=== PATIENT | male | born 1950 | race Caucasian/White ===

== ENCOUNTER 2017-09-03 06:45 | Emergency (ER) | payer MEDICARE, OTHER ==
[~2017-09-03] VITALS: Ht 185.4 cm; Wt 103.9 kg
[~2017-09-03 06:45] MED LIST: ACET325 PO; ALLO300 PO; ASPI81EC PO; Androgel5 GM; BACL10 PO; BACL20 PO; CEPH500 PO; Cymbalta60 MG PO; DIVA500ER PO; DOCSEN PO; Diflucan200 MG PO; ENOX100I SUBQ; ENOX80I; FLUC200 PO; LEVE500 PO; LISI5 PO; LIVALO PO; LORA.5 PO; Lamictal200 MG PO; MAGOXI400 PO; METO50 PO; METO50ER PO; OXYC5 PO; PITAVASTATIN PO; POLY17UD PO; POTCHL20ER PO; POTPHO PO; PROB500 PO; RANI150 PO; ROPI.25 PO; SIMV80 PO; SOLI5; TOLT4 PO; VIT D PO; WARF4 PO; WARF5; WARF5 PO; WARF7.5 PO
[2017-09-03] MEDS ORDERED: Lamictal150 MG PO (07:01)
[2017-09-03] MEDS ORDERED: ROPI.25 PO (07:02)
[2017-09-03] MEDS ORDERED: WARF1 PO (07:02)
[2017-09-03] MEDS ORDERED: VIT D3 PO (07:03)
[2017-09-03] MEDS ORDERED: MELA3 PO (07:04)
[2017-09-03] MEDS ORDERED: B-122500 MC1 (07:05)
[2017-09-03] MEDS ORDERED: MYRBETRIQ50 MG PO (07:06)
[2017-09-03 07:20] LABS: BASOPHILS ABSOLUTE AUTO 0.04 K/mm3 (0.00-0.23); BASOPHILS PERCENT AUTO 0 % (0-2); EOSINOPHILS ABSOLUTE AUTO 0.06 K/mm3 (0.00-0.68); EOSINOPHILS PERCENT AUTO 1 % (0-6); Hematocrit 46.1 % (37.0-53.0); Hemoglobin 14.9 g/dL (13.5-17.5); IMMATURE GRAN ABSOLUTE AUTO 0.05 K/mm3 (0.00-0.10); IMMATURE GRAN PERCENT AUTO 1 % (0-1); LYMPHOCYTES ABSOLUTE AUTO 1.14 K/mm3 (0.84-5.20); LYMPHOCYTES PERCENT AUTO 12 % (21-46); MONOCYTES ABSOLUTE AUTO 1.02 K/mm3 (0.16-1.47); MONOCYTES PERCENT AUTO 10 % (4-13); Mean Corpuscular HGB Conc 32.3 g/dL (31.5-36.5); Mean Corpuscular Volume 96 fL (80-100); Mean Platelet Volume 10.7 fL (9.1-12.4); NEUTROPHILS ABSOLUTE AUTO 7.51 K/mm3 (1.96-9.15); NEUTROPHILS PERCENT AUTO 77 % (41-73); Platelet Count 238 K/mm3 (150-400); RDW Coefficient Variation 14.6 % (11.7-14.2); RDW Standard Deviation 51.7 fL (35.1-46.3); Red Blood Cell Count 4.81 M/mm3 (4.30-5.90); White Blood Cell Count 9.82 K/mm3 (4.00-11.30)
[2017-09-03 07:33] LABS: International Normalized Ratio 3.34; Prothrombin Time Results 32.1 Sec (9.7-11.5)
[2017-09-03 07:49] LABS: Anion Gap 8 mmol/L (6-16); Blood Urea Nitrogen 26 mg/dL (8-24); Bun/Creatinine Ratio 28.1 (12.0-20.0); CO2, Blood 24 mmol/L (21-32); Calcium, Blood 8.8 mg/dL (8.5-10.1); Chloride, Blood 108 mmol/L (98-108); Creatinine, Blood 0.92 mg/dL (0.60-1.20); Glomerular Filtration Rate >60 (60-); Glucose, Blood 120 mg/dL (70-99); Potassium, Blood 4.6 mmol/L (3.5-5.5); Sodium, Blood 140 mmol/L (136-145); Uric Acid, Blood 7.1 mg/dL (3.5-7.2)
[2017-09-03] MEDS ORDERED: CEPH500 PO (08:37)
[2017-09-04] MEDS ORDERED: LORA1SY (10:12)
== END 2017-09-03 09:04 | disposition home or self-care (01) ==
LOC: ER 06:45
PROVIDERS: Emergency Medicine
DX: L03.115 Cellulitis of right lower limb (principal); Z88.8 Allergy status to other drugs, medicaments and biological substances; Z79.899 Other long term (current) drug therapy; Z79.01 Long term (current) use of anticoagulants; Z79.2 Long term (current) use of antibiotics; Z87.891 Personal history of nicotine dependence
CPT/HCPCS: 71046; 73630; 80048; 84550; 85025; 85610; 90471; 90714; 96374; 99283; J0690

== ENCOUNTER 2017-09-03 21:21 | Inpatient (IN) | payer MEDICARE, OTHER ==
[~2017-09-03] VITALS: Ht 182.9 cm; Wt 111.9 kg
[~2017-09-03 21:21] MED LIST changes: +B-122500 MC1; +Lamictal150 MG PO; +MELA3 PO; +MYRBETRIQ50 MG PO; +VIT D3 PO; +WARF1 PO
[2017-09-03 23:51] LABS: BASOPHILS ABSOLUTE AUTO 0.02 K/mm3 (0.00-0.23); BASOPHILS PERCENT AUTO 0 % (0-2); EOSINOPHILS ABSOLUTE AUTO 0.04 K/mm3 (0.00-0.68); EOSINOPHILS PERCENT AUTO 0 % (0-6); Hematocrit 44.1 % (37.0-53.0); Hemoglobin 14.4 g/dL (13.5-17.5); IMMATURE GRAN ABSOLUTE AUTO 0.04 K/mm3 (0.00-0.10); IMMATURE GRAN PERCENT AUTO 0 % (0-1); LYMPHOCYTES ABSOLUTE AUTO 1.25 K/mm3 (0.84-5.20); LYMPHOCYTES PERCENT AUTO 13 % (21-46); MONOCYTES ABSOLUTE AUTO 0.89 K/mm3 (0.16-1.47); MONOCYTES PERCENT AUTO 9 % (4-13); Mean Corpuscular HGB 31.4 pg (26.0-34.0); Mean Corpuscular HGB Conc 32.7 g/dL (31.5-36.5); Mean Corpuscular Volume 96 fL (80-100); Mean Platelet Volume 11.4 fL (9.1-12.4); NEUTROPHILS PERCENT AUTO 77 % (41-73); Platelet Count 240 K/mm3 (150-400); RDW Coefficient Variation 14.9 % (11.7-14.2); RDW Standard Deviation 52.1 fL (35.1-46.3); Red Blood Cell Count 4.59 M/mm3 (4.30-5.90); White Blood Cell Count 9.64 K/mm3 (4.00-11.30)
[2017-09-04 01:15] LABS: International Normalized Ratio 3.82; Prothrombin Time Results 36.5 Sec (9.7-11.5)
[2017-09-04 01:17] LABS: Alanine Aminotransfer (ALT/SGP 29 U/L (12-78); Albumin, Blood 3.3 g/dL (3.4-5.0); Albumin/Globulin Ratio 0.8 (0.8-1.8); Alk Phos 72 U/L (50-136); Anion Gap 8 mmol/L (6-16); Aspartate Aminotrans (AST/SGOT 22 U/L (12-37); Bilirubin, Total 0.4 mg/dL (0.1-1.0); Blood Urea Nitrogen 24 mg/dL (8-24); Bun/Creatinine Ratio 24.5 (12.0-20.0); CO2, Blood 27 mmol/L (21-32); Calcium, Blood 8.7 mg/dL (8.5-10.1); Chloride, Blood 106 mmol/L (98-108); Creatinine, Blood 0.98 mg/dL (0.60-1.20); Glomerular Filtration Rate >60 (60-); Glucose, Blood 109 mg/dL (70-99); Potassium, Blood 4.4 mmol/L (3.5-5.5); Sodium, Blood 141 mmol/L (136-145); Total Protein, Blood 7.3 g/dL (6.4-8.2)
[2017-09-04] MEDS ORDERED: LORA1SY PO (10:12)
[2017-09-05 05:52] LABS: BASOPHILS ABSOLUTE AUTO 0.02 K/mm3 (0.00-0.23); BASOPHILS PERCENT AUTO 0 % (0-2); EOSINOPHILS ABSOLUTE AUTO 0.01 K/mm3 (0.00-0.68); EOSINOPHILS PERCENT AUTO 0 % (0-6); Hematocrit 44.2 % (37.0-53.0); Hemoglobin 14.5 g/dL (13.5-17.5); IMMATURE GRAN ABSOLUTE AUTO 0.04 K/mm3 (0.00-0.10); IMMATURE GRAN PERCENT AUTO 1 % (0-1); LYMPHOCYTES ABSOLUTE AUTO 0.73 K/mm3 (0.84-5.20); LYMPHOCYTES PERCENT AUTO 9 % (21-46); MONOCYTES ABSOLUTE AUTO 1.12 K/mm3 (0.16-1.47); MONOCYTES PERCENT AUTO 14 % (4-13); Mean Corpuscular HGB 31.3 pg (26.0-34.0); Mean Corpuscular HGB Conc 32.8 g/dL (31.5-36.5); Mean Corpuscular Volume 95 fL (80-100); Mean Platelet Volume 10.4 fL (9.1-12.4); NEUTROPHILS ABSOLUTE AUTO 6.35 K/mm3 (1.96-9.15); NEUTROPHILS PERCENT AUTO 77 % (41-73); Platelet Count 204 K/mm3 (150-400); RDW Coefficient Variation 14.4 % (11.7-14.2); RDW Standard Deviation 50.6 fL (35.1-46.3); Red Blood Cell Count 4.64 M/mm3 (4.30-5.90); White Blood Cell Count 8.27 K/mm3 (4.00-11.30)
[2017-09-05 06:09] LABS: Anion Gap 8 mmol/L (6-16); Blood Urea Nitrogen 17 mg/dL (8-24); Bun/Creatinine Ratio 15.7 (12.0-20.0); CO2, Blood 29 mmol/L (21-32); Chloride, Blood 103 mmol/L (98-108); Creatinine, Blood 1.08 mg/dL (0.60-1.20); Glomerular Filtration Rate >60 (60-); Glucose, Blood 113 mg/dL (70-99); Potassium, Blood 4.8 mmol/L (3.5-5.5); Sodium, Blood 140 mmol/L (136-145); Uric Acid, Blood 6.1 mg/dL (3.5-7.2)
[2017-09-05 06:49] LABS: International Normalized Ratio 3.03; Prothrombin Time Results 29.3 Sec (9.7-11.5)
[2017-09-06 05:03] LABS: BASOPHILS ABSOLUTE AUTO 0.01 K/mm3 (0.00-0.23); BASOPHILS PERCENT AUTO 0 % (0-2); EOSINOPHILS ABSOLUTE AUTO 0.09 K/mm3 (0.00-0.68); EOSINOPHILS PERCENT AUTO 1 % (0-6); Hematocrit 39.6 % (37.0-53.0); Hemoglobin 12.8 g/dL (13.5-17.5); IMMATURE GRAN ABSOLUTE AUTO 0.04 K/mm3 (0.00-0.10); IMMATURE GRAN PERCENT AUTO 1 % (0-1); LYMPHOCYTES ABSOLUTE AUTO 0.76 K/mm3 (0.84-5.20); LYMPHOCYTES PERCENT AUTO 10 % (21-46); MONOCYTES PERCENT AUTO 12 % (4-13); Mean Corpuscular HGB 31.3 pg (26.0-34.0); Mean Corpuscular HGB Conc 32.3 g/dL (31.5-36.5); Mean Corpuscular Volume 97 fL (80-100); Mean Platelet Volume 9.9 fL (9.1-12.4); NEUTROPHILS ABSOLUTE AUTO 5.51 K/mm3 (1.96-9.15); NEUTROPHILS PERCENT AUTO 76 % (41-73); Platelet Count 191 K/mm3 (150-400); RDW Coefficient Variation 14.2 % (11.7-14.2); Red Blood Cell Count 4.09 M/mm3 (4.30-5.90); White Blood Cell Count 7.31 K/mm3 (4.00-11.30)
[2017-09-06 05:17] LABS: International Normalized Ratio 2.81; Prothrombin Time Results 27.3 Sec (9.7-11.5)
[2017-09-06 05:21] LABS: Bun/Creatinine Ratio 18.1 (12.0-20.0); Calcium, Blood 9.2 mg/dL (8.5-10.1); Creatinine, Blood 1.44 mg/dL (0.60-1.20); Potassium, Blood 4.2 mmol/L (3.5-5.5)
[2017-09-07 06:05] LABS: BASOPHILS ABSOLUTE AUTO 0.01 K/mm3 (0.00-0.23); BASOPHILS PERCENT AUTO 0 % (0-2); EOSINOPHILS PERCENT AUTO 2 % (0-6); Hematocrit 37.8 % (37.0-53.0); Hemoglobin 12.2 g/dL (13.5-17.5); IMMATURE GRAN ABSOLUTE AUTO 0.02 K/mm3 (0.00-0.10); IMMATURE GRAN PERCENT AUTO 0 % (0-1); LYMPHOCYTES ABSOLUTE AUTO 0.78 K/mm3 (0.84-5.20); LYMPHOCYTES PERCENT AUTO 13 % (21-46); MONOCYTES ABSOLUTE AUTO 0.67 K/mm3 (0.16-1.47); MONOCYTES PERCENT AUTO 11 % (4-13); Mean Corpuscular HGB Conc 32.3 g/dL (31.5-36.5); Mean Corpuscular Volume 96 fL (80-100); Mean Platelet Volume 10.3 fL (9.1-12.4); NEUTROPHILS ABSOLUTE AUTO 4.28 K/mm3 (1.96-9.15); NEUTROPHILS PERCENT AUTO 73 % (41-73); Platelet Count 223 K/mm3 (150-400); RDW Coefficient Variation 14.2 % (11.7-14.2); RDW Standard Deviation 50.5 fL (35.1-46.3); Red Blood Cell Count 3.93 M/mm3 (4.30-5.90); White Blood Cell Count 5.86 K/mm3 (4.00-11.30)
[2017-09-07 06:19] LABS: International Normalized Ratio 2.59; Prothrombin Time Results 25.3 Sec (9.7-11.5)
[2017-09-07 06:25] LABS: Anion Gap 6 mmol/L (6-16); Blood Urea Nitrogen 24 mg/dL (8-24); CO2, Blood 29 mmol/L (21-32); Calcium, Blood 9.5 mg/dL (8.5-10.1); Chloride, Blood 103 mmol/L (98-108); Creatinine, Blood 1.09 mg/dL (0.60-1.20); Glomerular Filtration Rate >60 (60-); Glucose, Blood 104 mg/dL (70-99); Potassium, Blood 4.6 mmol/L (3.5-5.5); Sodium, Blood 138 mmol/L (136-145)
[2017-09-08 06:06] LABS: International Normalized Ratio 2.24
[2017-09-09 04:54] LABS: BASOPHILS ABSOLUTE AUTO 0.01 K/mm3 (0.00-0.23); BASOPHILS PERCENT AUTO 0 % (0-2); EOSINOPHILS ABSOLUTE AUTO 0.01 K/mm3 (0.00-0.68); EOSINOPHILS PERCENT AUTO 0 % (0-6); Hematocrit 41.6 % (37.0-53.0); Hemoglobin 13.2 g/dL (13.5-17.5); IMMATURE GRAN ABSOLUTE AUTO 0.06 K/mm3 (0.00-0.10); IMMATURE GRAN PERCENT AUTO 1 % (0-1); LYMPHOCYTES ABSOLUTE AUTO 0.72 K/mm3 (0.84-5.20); LYMPHOCYTES PERCENT AUTO 12 % (21-46); MONOCYTES ABSOLUTE AUTO 0.41 K/mm3 (0.16-1.47); MONOCYTES PERCENT AUTO 7 % (4-13); Mean Corpuscular HGB 30.4 pg (26.0-34.0); Mean Corpuscular HGB Conc 31.7 g/dL (31.5-36.5); Mean Corpuscular Volume 96 fL (80-100); Mean Platelet Volume 10.1 fL (9.1-12.4); NEUTROPHILS ABSOLUTE AUTO 4.74 K/mm3 (1.96-9.15); NEUTROPHILS PERCENT AUTO 80 % (41-73); Platelet Count 255 K/mm3 (150-400); RDW Coefficient Variation 14.5 % (11.7-14.2); RDW Standard Deviation 51.2 fL (35.1-46.3); Red Blood Cell Count 4.34 M/mm3 (4.30-5.90); White Blood Cell Count 5.95 K/mm3 (4.00-11.30)
[2017-09-09 05:09] LABS: International Normalized Ratio 2.17; Prothrombin Time Results 21.4 Sec (9.7-11.5)
[2017-09-09 05:20] LABS: Anion Gap 8 mmol/L (6-16); Blood Urea Nitrogen 24 mg/dL (8-24); Bun/Creatinine Ratio 24.9 (12.0-20.0); CO2, Blood 26 mmol/L (21-32); Calcium, Blood 9.7 mg/dL (8.5-10.1); Chloride, Blood 103 mmol/L (98-108); Creatinine, Blood 0.97 mg/dL (0.60-1.20); Glomerular Filtration Rate >60 (60-); Glucose, Blood 138 mg/dL (70-99); Potassium, Blood 4.7 mmol/L (3.5-5.5); Sodium, Blood 137 mmol/L (136-145)
[2017-09-10 05:38] LABS: International Normalized Ratio 2.36; Prothrombin Time Results 23.2 Sec (9.7-11.5)
[2017-09-10] MEDS ORDERED: CLIN300 PO (12:12)
[2017-09-10] MEDS ORDERED: GUAI600T33 PO (12:13)
[2017-09-10] MEDS ORDERED: FEBU40TA PO (12:13)
[2017-09-10] MEDS ORDERED: HYDR1TAB94 PO (12:14)
[2017-09-10] MEDS ORDERED: ONDA4ODT MM (12:15)
[2017-09-10] MEDS ORDERED: DELTASONE20 MG PO (12:17)
[2017-09-10] MEDS ORDERED: DOXY100 PO (12:17)
[2017-09-10] MEDS ORDERED: ACIDOPHILUS1 EAC2 PO (12:22)
== END 2017-09-10 13:03 | disposition home health service (06) | DRG 603 ==
LOC: ER 21:21 → MEDS 09-04 04:24 → ENPENDDIS 09-10 10:44 → MEDS 09-10 13:03
PROVIDERS: Emergency Medicine; Family Medicine
DX: L03.115 Cellulitis of right lower limb (principal); I69.354 Hemiplegia and hemiparesis following cerebral infarction affecting left non-dominant side; G40.909 Epilepsy, unspecified, not intractable, without status epilepticus; Z95.2 Presence of prosthetic heart valve; Z87.891 Personal history of nicotine dependence; Z66 Do not resuscitate; Z79.01 Long term (current) use of anticoagulants; M10.9 Gout, unspecified; I10 Essential (primary) hypertension
CPT/HCPCS: 36415; 71046; 73630; 80048; 80053; 84550; 85025; 85610; 85730; 90471; 90714; 93970; 93971; 96365; 96366; 96374; 96375; 97110; 97116; 97163; 97167; 97530; 97535; 99283; 99285; G8978; G8979; G8980; G8987; G8988; J0690; J1650; J1885; J2405; J3010; J7120

== ENCOUNTER 2018-09-02 17:52 | Observation (INO) | payer MEDICARE, OTHER ==
[~2018-09-02] VITALS: Ht 182.9 cm; Wt 105.0 kg
[~2018-09-02 17:52] MED LIST changes: +ACIDOPHILUS1 EAC2 PO; -B-122500 MC1; +B-122500 MC1 SL; +CHOL10002 PO; +CLIN300 PO; +DELTASONE20 MG PO; +DOXY100 PO; +FEBU40TA PO; +GUAI600T33 PO; +HYDR1TAB94 PO; +LORA1SY PO; +ONDA4ODT MM; -VIT D3 PO
[2018-09-02 18:35] LABS: Source, Urine Catheter
[2018-09-02 18:46] LABS: Appearance, Urine Clear (Clear); Bilirubin, Urine Neg (Neg); Blood, Urine Neg (Neg); Color, Urine Yellow (P-Yellow); Glucose Qualitative, Urine Neg (Neg); Ketones, Urine 1+ (Neg); Leukocyte Esterase, Urine 1+ (Neg); Nitrite, Urine Neg (Neg); Protein, Urine 2+ (Neg); Specific Gravity, Urine 1.025 (1.003-1.022); Urobilinogen, Urine 1+ (Normal)
[2018-09-02] MEDS ORDERED: FLUC200 PO (19:02)
[2018-09-02] MEDS ORDERED: DULO30 PO (19:03)
[2018-09-02] MEDS ORDERED: TOLT4 PO (19:06)
[2018-09-02 19:07] LABS: Red Blood Cells, Urine 0-2 /hpf (0-2); Squamous Epithelial Cells Not Seen /hpf (Few)
[2018-09-02 19:08] LABS: Bacteria Few /hpf
[2018-09-02] MEDS ORDERED: ROSU10TA PO (19:08)
[2018-09-02 19:34] LABS: BASOPHILS ABSOLUTE AUTO 0.01 K/mm3 (0.00-0.23); BASOPHILS PERCENT AUTO 0 % (0-2); EOSINOPHILS ABSOLUTE AUTO 0.14 K/mm3 (0.00-0.68); EOSINOPHILS PERCENT AUTO 2 % (0-6); Hemoglobin 9.7 g/dL (13.5-17.5); IMMATURE GRAN ABSOLUTE AUTO 0.05 K/mm3 (0.00-0.10); IMMATURE GRAN PERCENT AUTO 1 % (0-1); LYMPHOCYTES ABSOLUTE AUTO 0.88 K/mm3 (0.84-5.20); LYMPHOCYTES PERCENT AUTO 13 % (21-46); MONOCYTES ABSOLUTE AUTO 0.65 K/mm3 (0.16-1.47); MONOCYTES PERCENT AUTO 9 % (4-13); Mean Corpuscular HGB 30.5 pg (26.0-34.0); Mean Corpuscular HGB Conc 30.3 g/dL (31.5-36.5); Mean Corpuscular Volume 101 fL (80-100); Mean Platelet Volume 10.8 fL (9.1-12.4); NEUTROPHILS ABSOLUTE AUTO 5.19 K/mm3 (1.96-9.15); NEUTROPHILS PERCENT AUTO 75 % (41-73); NRBC ABSOLUTE 0.02 K/mm3 (0.00-0.02); NRBC Auto 0.3 /100 WBC (0.0-0.2); Platelet Count 196 K/mm3 (150-400); RDW Coefficient Variation 15.5 % (11.7-14.2); RDW Standard Deviation 56.5 fL (35.1-46.3); Red Blood Cell Count 3.18 M/mm3 (4.30-5.90); White Blood Cell Count 6.92 K/mm3 (4.00-11.30)
[2018-09-02 19:57] LABS: International Normalized Ratio 3.06; Prothrombin Time Results 29.3 Sec (9.7-11.5)
[2018-09-02 20:01] LABS: Troponin I <0.015 ng/mL (0.000-0.040)
[2018-09-02 20:02] LABS: Alanine Aminotransfer (ALT/SGP 25 U/L (12-78); Albumin, Blood 3.3 g/dL (3.4-5.0); Alk Phos 86 U/L (50-136); Anion Gap 7 mmol/L (6-16); Aspartate Aminotrans (AST/SGOT 23 U/L (12-37); Bilirubin, Total 0.9 mg/dL (0.1-1.0); Blood Urea Nitrogen 32 mg/dL (8-24); Bun/Creatinine Ratio 28.1 (12.0-20.0); CO2, Blood 26 mmol/L (21-32); Calcium, Blood 8.9 mg/dL (8.5-10.1); Chloride, Blood 112 mmol/L (98-108); Creatinine, Blood 1.14 mg/dL (0.60-1.20); Globulin, Blood 3.2 g/dL (2.2-4.0); Glomerular Filtration Rate >60 (60-); Glucose, Blood 84 mg/dL (70-99); Potassium, Blood 3.9 mmol/L (3.5-5.5); Sodium, Blood 145 mmol/L (136-145); Total Protein, Blood 6.5 g/dL (6.4-8.2)
[2018-09-03 05:31] LABS: BASOPHILS ABSOLUTE AUTO 0.03 K/mm3 (0.00-0.23); BASOPHILS PERCENT AUTO 0 % (0-2); EOSINOPHILS ABSOLUTE AUTO 0.15 K/mm3 (0.00-0.68); EOSINOPHILS PERCENT AUTO 2 % (0-6); Hematocrit 32.4 % (37.0-53.0); Hemoglobin 9.5 g/dL (13.5-17.5); IMMATURE GRAN ABSOLUTE AUTO 0.04 K/mm3 (0.00-0.10); IMMATURE GRAN PERCENT AUTO 1 % (0-1); LYMPHOCYTES ABSOLUTE AUTO 1.04 K/mm3 (0.84-5.20); LYMPHOCYTES PERCENT AUTO 15 % (21-46); MONOCYTES ABSOLUTE AUTO 0.75 K/mm3 (0.16-1.47); MONOCYTES PERCENT AUTO 11 % (4-13); Mean Corpuscular HGB 29.7 pg (26.0-34.0); Mean Corpuscular HGB Conc 29.3 g/dL (31.5-36.5); Mean Corpuscular Volume 101 fL (80-100); NEUTROPHILS ABSOLUTE AUTO 4.82 K/mm3 (1.96-9.15); NEUTROPHILS PERCENT AUTO 71 % (41-73); NRBC ABSOLUTE 0.02 K/mm3 (0.00-0.02); NRBC Auto 0.3 /100 WBC (0.0-0.2); Platelet Count 203 K/mm3 (150-400); RDW Coefficient Variation 15.5 % (11.7-14.2); RDW Standard Deviation 57.3 fL (35.1-46.3); White Blood Cell Count 6.83 K/mm3 (4.00-11.30)
[2018-09-03 05:44] LABS: International Normalized Ratio 3.22; Prothrombin Time Results 30.7 Sec (9.7-11.5)
[2018-09-03 05:58] LABS: Alanine Aminotransfer (ALT/SGP 22 U/L (12-78); Albumin, Blood 3.1 g/dL (3.4-5.0); Alk Phos 84 U/L (50-136); Anion Gap 8 mmol/L (6-16); Aspartate Aminotrans (AST/SGOT 23 U/L (12-37); Bilirubin, Total 1.1 mg/dL (0.1-1.0); Blood Urea Nitrogen 23 mg/dL (8-24); Bun/Creatinine Ratio 21.9 (12.0-20.0); CO2, Blood 24 mmol/L (21-32); Calcium, Blood 8.6 mg/dL (8.5-10.1); Chloride, Blood 112 mmol/L (98-108); Creatinine, Blood 1.05 mg/dL (0.60-1.20); Globulin, Blood 3.2 g/dL (2.2-4.0); Glomerular Filtration Rate >60 (60-); Glucose, Blood 94 mg/dL (70-99); Potassium, Blood 3.6 mmol/L (3.5-5.5); Sodium, Blood 144 mmol/L (136-145); Total Protein, Blood 6.3 g/dL (6.4-8.2)
--- NOTE | 2018-09-03 06:45 | NUR ---
a+o, room air, saline locked, L sided weakness, call light in reach, resting comfortably, will continue to monitor and treat until provide bsr to day shift
--- NOTE | 2018-09-03 19:03 | NUR ---
SHIFT SUMMARY- PT ALERT AND ORIENTED. HAS LEFT SIDED EFFECT FROM Hx CVA LEFT FACIAL DROOP. CALLED DR MONTGOMERY AT END OF SHIFT, PT HAS NOT VOIDED T/O THE SHIFT. NEW ORDER TO BLADDER SCAN Q8 WITH STRAIGHT CATH FOR VOLUME GREATER THAN 350. ALSO ANOTHER 1L OF NS IV. PT IS IN BED WITH THE CALL LIGHT IN REACH. PT DOES NOT C/O PAIN HOWEVER FAMILY HAS REQUESTED THAT STAFF MEDICATE REGULARLY FOR PAIN WITH TRAMADOL.
--- NOTE | 2018-09-04 04:02 | NUR ---
BLADDER SCANNED PATIENT @ 0213. SCAN SHOWED 273ML IN BLADDER. PATIENT ATTEMPTED TO URINATE BUT WAS UNSUCCESSFUL. WILL ATTEMPT AGAIN WHEN PATIENT WAKES UP AGAIN.
[2018-09-04 05:22] LABS: International Normalized Ratio 3.41; Prothrombin Time Results 32.3 Sec (9.7-11.5)
--- NOTE | 2018-09-04 06:26 | NUR ---
SHIFT SUMMARY PATIENT SET UP ON HOME CPAP BY RT. NO COMPLAINTS OVERNIGHT. PATIENT YELLED OUT FROM ROOM FOR NURSING STAFF MULTIPLE TIMES. PATIENT WOULD THEN STATE HE NEEDED TO URINATE. PATIENT CONTINENT WITH NURSING STAFF ASSISTANCE WITH URINAL. PATIENT BLADDER SCANNED WITH NO NEED FOR STRAIGHT CATHETERZATION. WCTM.
--- NOTE | 2018-09-04 10:49 | NUR ---
PT HAS NO PREFERENCE FOR HOME [facility]ALTH [facility]Y. MESSAGE LEFT FOR CASE MANAGEMENT FOR FOLLOW UP APPOINTMENT. SPOUSE ALSO STATES SHE WILL CALL ON THURSDAY.
[2018-09-04] MEDS ORDERED: DOCU100 PO (10:59)
[2018-09-04] MEDS ORDERED: LIDOCAINE PAIN1 EACH TOP (11:00)
[2018-09-04] MEDS ORDERED: TRAM50 PO (11:01)
--- NOTE | 2018-09-04 11:17 | NUR ---
DISCHARGE INSTRUCTIONS REVIEWED WITH PT, SON, AND SPOUSE. IV DC'D INTACT. MED[facility] FA[facility]ED TO [facility]. PT ESCORTED OUT AT 1113 VIA W/C TO D/C HOME WITH SON.
== END 2018-09-04 11:13 | disposition home or self-care (01) ==
LOC: ER 17:52 → MEDS 17:53
PROVIDERS: Emergency Medicine; ADMIT Hospitalist
DX: G92 Toxic encephalopathy (principal); S22.41XA Multiple fractures of ribs, right side, initial encounter for closed fracture; S30.0XXA Contusion of lower back and pelvis, initial encounter; D64.9 Anemia, unspecified; G40.909 Epilepsy, unspecified, not intractable, without status epilepticus; I71.4 Abdominal aortic aneurysm, without rupture; I69.354 Hemiplegia and hemiparesis following cerebral infarction affecting left non-dominant side; Z79.01 Long term (current) use of anticoagulants; Z88.8 Allergy status to other drugs, medicaments and biological substances; Z91.038 Other insect allergy status; Z79.899 Other long term (current) drug therapy; Z95.2 Presence of prosthetic heart valve; Z87.891 Personal history of nicotine dependence; Z66 Do not resuscitate; W19.XXXA Unspecified fall, initial encounter
CPT/HCPCS: 36415; 70450; 71045; 71046; 72100; 74177; 80053; 81001; 82272; 83605; 84484; 85018; 85025; 85610; 87040; 87086; 93005; 93010; 96361; 96374-59; 96375; 97162; 97530; 99285-25; A9270; C9113; G0378; J3010; J7030; Q9967

== ENCOUNTER 2018-09-07 16:23 | Inpatient (IN) | payer MEDICARE, OTHER ==
[~2018-09-07] VITALS: Ht 182.9 cm; Wt 103.9 kg
[~2018-09-07 16:23] MED LIST changes: +DOCU100 PO; +DULO30 PO; +LIDOCAINE PAIN1 EACH TOP; +ROSU10TA PO; +TRAM50 PO
[2018-09-07 17:33] LABS: BASOPHILS ABSOLUTE AUTO 0.01 K/mm3 (0.00-0.23); BASOPHILS PERCENT AUTO 0 % (0-2); EOSINOPHILS ABSOLUTE AUTO 0.14 K/mm3 (0.00-0.68); EOSINOPHILS PERCENT AUTO 2 % (0-6); Hematocrit 24.5 % (37.0-53.0); Hemoglobin 7.6 g/dL (13.5-17.5); IMMATURE GRAN ABSOLUTE AUTO 0.06 K/mm3 (0.00-0.10); IMMATURE GRAN PERCENT AUTO 1 % (0-1); LYMPHOCYTES ABSOLUTE AUTO 0.79 K/mm3 (0.84-5.20); LYMPHOCYTES PERCENT AUTO 10 % (21-46); MONOCYTES ABSOLUTE AUTO 0.77 K/mm3 (0.16-1.47); MONOCYTES PERCENT AUTO 10 % (4-13); Mean Corpuscular HGB 29.3 pg (26.0-34.0); Mean Platelet Volume 10.7 fL (9.1-12.4); NEUTROPHILS ABSOLUTE AUTO 6.08 K/mm3 (1.96-9.15); NEUTROPHILS PERCENT AUTO 77 % (41-73); Platelet Count 242 K/mm3 (150-400); RDW Coefficient Variation 15.2 % (11.7-14.2); RDW Standard Deviation 52.7 fL (35.1-46.3); Red Blood Cell Count 2.59 M/mm3 (4.30-5.90); White Blood Cell Count 7.85 K/mm3 (4.00-11.30)
[2018-09-07 17:37] LABS: Mean Corpuscular Volume 95 fL (80-100)
[2018-09-07 17:51] LABS: International Normalized Ratio 2.31; Prothrombin Time Results 22.7 Sec (9.7-11.5)
[2018-09-07 17:52] LABS: Alanine Aminotransfer (ALT/SGP 34 U/L (12-78); Albumin, Blood 2.7 g/dL (3.4-5.0); Albumin/Globulin Ratio 0.7 (0.8-1.8); Alk Phos 97 U/L (50-136); Anion Gap 9 mmol/L (6-16); Aspartate Aminotrans (AST/SGOT 43 U/L (12-37); Bilirubin, Total 1.5 mg/dL (0.1-1.0); Blood Urea Nitrogen 29 mg/dL (8-24); Bun/Creatinine Ratio 30.1 (12.0-20.0); CO2, Blood 23 mmol/L (21-32); Calcium, Blood 8.6 mg/dL (8.5-10.1); Chloride, Blood 106 mmol/L (98-108); Creatinine, Blood 0.97 mg/dL (0.60-1.20); Globulin, Blood 3.7 g/dL (2.2-4.0); Glomerular Filtration Rate >60 (60-); Glucose, Blood 97 mg/dL (70-99); Magnesium, Blood 2.1 mg/dL (1.6-2.4); Potassium, Blood 4.2 mmol/L (3.5-5.5); Sodium, Blood 138 mmol/L (136-145); Total Protein, Blood 6.4 g/dL (6.4-8.2); Troponin I <0.015 ng/mL (0.000-0.040)
[2018-09-07 18:52] LABS: Source, Urine Clean Catch
[2018-09-07 18:55] LABS: Appearance, Urine Clear (Clear); Blood, Urine 1+ (Neg); Color, Urine Amber (P-Yellow); Glucose Qualitative, Urine Neg (Neg); Ketones, Urine 3+ (Neg); Leukocyte Esterase, Urine 1+ (Neg); Nitrite, Urine Pos (Neg); Protein, Urine 2+ (Neg); Specific Gravity, Urine 1.015 (1.003-1.022); Urobilinogen, Urine 4+ (Normal)
[2018-09-07 19:04] LABS: Bilirubin, Urine 2+ (Neg)
[2018-09-07 19:05] LABS: Bacteria Mod /hpf; Mucus Mod (0-Heavy); Red Blood Cells, Urine 0-2 /hpf (0-2); Squamous Epithelial Cells Not Seen /hpf (Few); White Blood Cells, Urine 0-2 /hpf (0-5)
[2018-09-07 19:08] LABS: U Amphetamine Screen Not Detected; U Barbituate Screen Not Detected; U Benzodiazapine Screen Not Detected; U Buprenorphine Screen Not Detected; U Cannabinoids Screen DETECTED; U Cocaine Screen Not Detected; U Methadone Screen Not Detected; U Methamphetamine Screen Not Detected; U Opiates Screen Not Detected; U Oxycodone Screen Not Detected; U Phencyclidine Screen Not Detected; U Propoxyphene Screen Not Detected
[2018-09-07 22:04] LABS: PCO2 Arterial 37.9 mmHg (35-45); PO2 Arterial 74.3 mmHg (80-100); pH Blood Arterial 7.41 (7.35-7.45)
[2018-09-08 05:02] LABS: BASOPHILS ABSOLUTE AUTO 0.01 K/mm3 (0.00-0.23); BASOPHILS PERCENT AUTO 0 % (0-2); EOSINOPHILS PERCENT AUTO 3 % (0-6); Hematocrit 27.9 % (37.0-53.0); Hemoglobin 8.5 g/dL (13.5-17.5); IMMATURE GRAN ABSOLUTE AUTO 0.04 K/mm3 (0.00-0.10); IMMATURE GRAN PERCENT AUTO 1 % (0-1); LYMPHOCYTES ABSOLUTE AUTO 0.73 K/mm3 (0.84-5.20); LYMPHOCYTES PERCENT AUTO 12 % (21-46); MONOCYTES ABSOLUTE AUTO 0.54 K/mm3 (0.16-1.47); MONOCYTES PERCENT AUTO 9 % (4-13); Mean Corpuscular HGB 29.3 pg (26.0-34.0); Mean Corpuscular HGB Conc 30.5 g/dL (31.5-36.5); Mean Corpuscular Volume 96 fL (80-100); NEUTROPHILS ABSOLUTE AUTO 4.62 K/mm3 (1.96-9.15); NEUTROPHILS PERCENT AUTO 75 % (41-73); Platelet Count 223 K/mm3 (150-400); RDW Coefficient Variation 15.2 % (11.7-14.2); RDW Standard Deviation 53.2 fL (35.1-46.3); White Blood Cell Count 6.14 K/mm3 (4.00-11.30)
[2018-09-08 05:14] LABS: International Normalized Ratio 2.42; Prothrombin Time Results 23.7 Sec (9.7-11.5)
[2018-09-08 05:19] LABS: Anion Gap 10 mmol/L (6-16); Blood Urea Nitrogen 23 mg/dL (8-24); Bun/Creatinine Ratio 24.8 (12.0-20.0); CO2, Blood 23 mmol/L (21-32); Calcium, Blood 8.6 mg/dL (8.5-10.1); Chloride, Blood 108 mmol/L (98-108); Creatinine, Blood 0.93 mg/dL (0.60-1.20); Glomerular Filtration Rate >60 (60-); Glucose, Blood 88 mg/dL (70-99); Sodium, Blood 141 mmol/L (136-145)
[2018-09-08 05:25] LABS: Percent Saturation 15.2 % (20.0-50.0)
--- NOTE | 2018-09-08 06:37 | NUR ---
SHIFT SUMMARY: PATIENT ARRIVED TO THE FLOOR VIA GURNEY AT 2054, HE WAS ACCOMPIED BY HIS . HE WAS ALERT BUT CONFUSED. HISTORY OF A STROKE WITH LEFT SIDE WEAKNESS. STATES CONFUSION HAS BEEN ABOUT A WEEK NOW ALONG WITH ALL OF HIS OTHER SYMPTOMS INCLUDING WEAKNESS. TODAY IT GOT WORSE SO SHE BROUGHT HIM IN. HE HAD SEVERAL FALLS OVER THE LAST SEVERAL DAYS CAUSING BRUISING ALL OVER HIS BODY. ONCE ARRIVED TO THE FLOOR HE TRANSFERRED VIA TRANSFER SHEET TO THE BED, CT ARRIVED ABOUT 20 MIN AFTER AND HE HAD TO BE TRANSFERRED BACK TO GO TO CT. THEN BACK TO HIS BED WHEN HE GOT BACK. HE WAS MOSTLY OUT OF IT TO EVEN HAVE THIS AFFECT HIM. BLOOD WAS ORDERED BUT ONLY A FEILD START WAS IN THE RIGHT HAND FOR IV. NEW IV WAS PLACED IN THE RIGHT AC. BLOOD VERIFIED AND ADMINISTERED ALONG WITH IV FLUIDS. HE CAME UP WITH ERINN FROM ER. THIS WAS DRAINING ONLY SMALL AMOUNT AT FIRST THEN ONCE FLUIDS STARTED HE HAD 560 OUT ALL NIGHT, ERINN WAS DC'D THIS AM DUE TO NO ORDER. LUNGS SOUNDS REMAINED CLEAR BUT DIMINISHED IN THE BASES, VS REMAINED STABLE. MEDS WERE GIVEN PER EMAR. PATIENT SLEPT THROUGHOUT THE NIGHT AND IS NOW AWAKE. HE DENIED ANY MAJOR PAIN TILL THIS AM, DID NOT TAKE MIDNIGHT DOSE OF TYELENOL BUT DID TAKE IT THIS AM. NO OTHER ACUTE CHANGED OCCURRED THIS SHIFT. WILL REPORT TO DAY SHIFT RN.
--- NOTE | 2018-09-08 10:15 | NUR ---
PURPLE DNR BAND PLACED ON PTS LEFT WRIST. ORDER VERIFIED WITH ESTEFANIA FOLEY
--- NOTE | 2018-09-08 18:18 | NUR ---
HE DOES NOT INITIATE CONVERSATION. HE IS ORIENTED TO SELF AND SITUATION. HIS WAS HERE FOR ABOUT 6 HRS TODAY. HE HAS BEEN UP IN THE CHAIR X2 TODAY. HE IS A 2 PERSON TRANSFER. IVF'S STOPPED THIS MORNING PER 'S ORDER. HE HAS BEEN UNABLE TO VOID TODAY BUT THE BLADDER SCANNER AT 1710 SHOWED ONLY 261 MLS. OXIMETRY ON ALL DAY. HE WEARS CPAP AT NIGHT. PAS ON.O2 ON. NO COMPLAINTS.HE WORKED WELL WITH THERAPIES TODAY.
--- NOTE | 2018-09-09 05:13 | NUR ---
AGRICULTURAL RESEARCH ENGINEER SUMMARY PT AAOX2, PLEASANT AND COOPERATIVE. INTERMITTENT CONFUSION AT TIMES BUT EASILY REORIENTED. PT HAD PLASENCIA CATHETER REMOVED DURING DAY SHIFT AND PER DAY RN PT HAD NOT VOIDED AT ALL SINCE REMOVAL AND STATED BLADDER SCAN WAS IN 250'S. PT HAD VOID THIS SHIFT OF JUST OVER 200 MLS. PRE VOID BLADDER SCAN WAS ONLY 350'S. PT DENIES PAIN, SOB, N/V. VSS, WILL CONTINUE TO MONITOR.
[2018-09-09 10:41] LABS: International Normalized Ratio 3.49
--- NOTE | 2018-09-09 17:52 | NUR ---
HE WAS UP IN THE CHAIR X2 AGAIN TODAY. HE IS MORE ALERT AND MOBILE TODAY THAN YESTERDAY. HIS BALANCE ID POOR THOUGH AND HE CAN BE IMPULSIVE. 2 WATER POLLUTION CONTROL INSPECTOR'S ARE GETTING HIM UP FOR DINNER NOW. HE ALSO JUST HAD A BM. HE HAS VOIDED X3 TODAY BESIDES THE INCONTINENCE AT SHIFT CHANGE THIS MORNING. INR 3.49. COUMADIN DC'D.PO INTAKE POOR. MD NOTED THRUSH WHEN HE C/O SORE THROAT TO HER. MYCELEX STARTED. WAS HERE 1/2 THE DAY. SHE WILL BRING IN HIS CRESTOR NEXT TIME SHE COMES BACK. O2 WAS DC'D TODAY. HE DESATTED ONCE TODAY WITH MOBILITY.
--- NOTE | 2018-09-10 04:33 | NUR ---
HOROLOGIST SUMMARY NO ACUTE CHANGES THIS SHIFT. PT AAOX2 WITH SOME INTERMITTENT CONFUSION. PLEASANT AND COOPERATIVE. PT DENIES PAIN, SOB, N/V. PT STARTED ON BOWEL MEDS YESTERDAY AND HAS HAD SEVERAL INCONTINENT BM'S THIS SHIFT. PT IS A MAX 2 PERSON ASSIST WITH A GAIT BELT AND [place] [facility] [place] PT IS VERY WEAK AND ALSO HAS RESIDUAL L SIDE WEAKNESS FROM A PREVIOUS STROKE THAT MAKES IT DIFFICULT FOR HIM TO AMBULATE. NO LONGER ON O2, NOW ON ROOM AIR AND MAINTAINING O2 SATS OVER 90%. VSS, WILL CONTINUE TO MONITOR.
[2018-09-10 05:09] LABS: Hematocrit 29.6 % (37.0-53.0); Hemoglobin 8.9 g/dL (13.5-17.5)
[2018-09-10 05:31] LABS: Prothrombin Time Results 38.7 Sec (9.7-11.5)
[2018-09-10 05:34] LABS: International Normalized Ratio 4.16
--- NOTE | 2018-09-10 09:53 | NUR ---
PT NAUSEATED PT INFORMED THIS RN THAT HE IS NAUSEATED THIS AM. DR. MONTANA CALLED. ZOFRAN ORDER GIVEN. WILL CONTINUE TO MONITOR.
--- NOTE | 2018-09-10 17:12 | NUR ---
SHIFT SUMMARY PT HAS LOOSE WATERY STOOLS THROUGHOUT THE SHIFT. THIS AFTERNOON PT HAD AN EXTRA LARGE FORMED BM. PT STATES HE FEELS MUCH BETTER AFTERWARDS. PT HAS ONE EPISODE OF HALLUCINATION THIS SHIFT. PT REORIENTED EASILY. NO OTHER CHANGES IN ASSESSMENT AT THIS TIME. VSS. WILL CONTINUE TO MONITOR UNTIL TURNOVER IS COMPLETE.
--- NOTE | 2018-09-10 18:49 | NUR ---
Initial Visit: Palliative Care Consult for Advanced Care Planning. Pt is A&O but appears to experience intermittent confusion. Pt denies pain at this time. He denies dyspnea and axiety. Engaged in therapeutic discussion regarding advanced care planning. Pt reports living at home with his and has 2 children. One child lives locally and the other lives in [place]. When discussing Pt lving situation he states he lives with his "right there" and points to the right side of the room. Pt is easily redirectable. Pt reports adequate support at home. He reports using wall and furniture to steady him as he ambulated through the house. Pt reports independence of bathing and dressing. Encouraged Pt to have routine discussions with PCP regarding his health including disease process of his stroke. Incouraged Pt to write questions down on papter prior to PCP visit to help with communication. Pt reports his also accompanies him to appointments. Pt reports no other concerns at this time. Will attempt visit when is present to address any concerns for family. Spoke with bedside nurse Charito and she reports Pt experienced hallucination today. Pt asked nurse to catch his dog earlier today. No other concerns at this time. Palliative Care will remain available.
--- NOTE | 2018-09-11 01:57 | NUR ---
PATIENT ON HOME CPAP STATING 95% ON CONTINUOUS PULSE OXIMETRY. WILL CONTINUE TO MONITOR.
--- NOTE | 2018-09-11 04:16 | NUR ---
SHIFT SUMMARY PATIENT HAD NO ACUTE CHANGES OBSERVED THIS SHIFT. AXOX 2 W/CONFUSION. TWO PERSON MAX STAND PIVOT TO BSC. TAKES MEDICATION WHOLE. PIV REMAINS INTACT. VSS/AFBRILE. DENIES PAIN, SOB, AND N/V. ON HOME CPAP WITH CONTINUOUS PULSE OXIMETRY STATING 95%. NO HALLUCINATIONS NOTED. CALL LIGHT IN REACH. BED IN LOWEST POSITION. WILL CONTINUE TO MONITOR UNTIL DAY SHIFT NURSE ASSUMES CARE.
[2018-09-11 05:50] LABS: Prothrombin Time Results 39.6 Sec (9.7-11.5)
[2018-09-11 06:04] LABS: International Normalized Ratio 4.26
--- NOTE | 2018-09-11 06:36 | NUR ---
cH INR 4.26 AND 4.[address] BRYANT REPORTED TO. NO INSTRUCTIONS AT THIS TIME.
--- NOTE | 2018-09-11 11:48 | NUR ---
P/T HERE EARLIER THIS AM TO WORK WITH PT. VERBALIZED CONCERN R/T INR. DR MONTANA IN TO SEE PT RECENTLY. NEW ORDERS RECEIVED. DR MONTANA WOULD LIKE P/T TO WORK WITH PT WELL PT TO WORK ON MOBILITY EXERCISES IN BED. NOTIFIED P/T OF DR MONTANA'S REQUEST.
--- NOTE | 2018-09-11 15:51 | NUR ---
SHIFT SUMMARY PT IMPROVING THRU OUT THE DAY. VERY WEAK AND STIFF THIS AM, WHEN GETTING UP TO BSC FOR BM. PT LATER UP AGAIN TO BSC AND WORKED WITH P/T. PT CONTINUED TO IMPROVE, SITTING UP TO CHAIR FOR MEALS AND WORKING ON BED EXERCISES ORDERED. MEDICATED WITH TYLENOL FOR C/O ROJAS. PT'S HERE MOST OF DAY, ASSISTING PT WITH CARE. L SIDE VERY WEAK; GROSS MOTOR MOVEMENT WITH AMARILIS ONLY AND CONTROLLED MOVEMENT WITH LLE. PT NOT EATING MUCH FOR BREAKFAST OR LUNCH, "I ATE WHAT I COULD". VSS, PT'S BIOX WNL'S ON RA ALL DAY. NEW FINGER PROBE PLACED EARLY THIS AM AND NO LONGER ALARMING. BED ALARM ON FOR SAFETY. CALL LT IN REACH.
--- NOTE | 2018-09-12 04:40 | NUR ---
SHIFT SUMMARY PT A/O. L SIDED DEFICITS. INCONT OF URINE. HE WAS ABLE TO SLEEP ON AND OFF T/O NIGHT. NO C/O PAIN. NO BM. CALL LIGHT IN REACH.
[2018-09-12 05:48] LABS: International Normalized Ratio 3.91; Prothrombin Time Results 36.6 Sec (9.7-11.5)
--- NOTE | 2018-09-12 13:28 | NUR ---
SHIFT SUMMARY PT ASSISTED UP TO CHAIR, AT START OF SHIFT. ONLY EATING VERY SM AMT OF BREAKFAST. DOES NOT LIKE BRAT DIET. C/O ABD DISCOMFORT, "GAS". PT'S ENCOURAGED HIM TO GO FOR A WALK, BEFORE GETTING BACK INTO BED. PT CONTINUING TO IMPROVE. 1P ASSIST WITH FWW NOW, AND ABLE TO AMBULATE FAIRLY WELL WITH MINIMAL SBA. PT RETURNED TO WITH SM AMT OF BOWEL INCONTINENCE. PT CLEANED AND ASSISTED INTO BED. DR MONTANA IN TO SEE PT SEVERAL TIMES TODAY. PT COMPLAINED ABOUT THE BRAT DIET ORDERED. DR MONTANA OK'D PT TO HAVE CARDIAC DIET. PT'S VERBALIZED CONCERNS ABOUT PT GOING TO SNF; PT WOULD BE UNHAPPY. WANTING PT TO GO HOME INSTEAD. NO OTHER C/O. PT PLEASANT AND CO-OP WITH CARE. NO C/O PAIN. RESTING QUIETLY AT THIS TIME. PT TO WALK IN HALLS AGAIN LATER TODAY. CALL LT IN REACH.
[2018-09-13 05:54] LABS: International Normalized Ratio 3.77; Prothrombin Time Results 35.4 Sec (9.7-11.5)
--- NOTE | 2018-09-13 06:10 | NUR ---
SHIFT SUMMARY PT A/O. INCONT OF URINE NO BM. NO ACUTE CHANGES. HE WAS ABLE TO SLEEP T/O NIGHT. WORE CPAP. CALL LIGHT IN REACH.
[2018-09-13] MEDS ORDERED: Vsl#3 Capsule1 EACH PO (10:20)
[2018-09-13] MEDS ORDERED: CLOT10 SS (10:20)
[2018-09-13] MEDS ORDERED: ONDA4ODT MM (10:21)
--- NOTE | 2018-09-13 13:39 | NUR ---
DISCHARGE DISCHARGE INSTRUCTIONS, FOLLOW UP APPOINTMENTS AND MEDICATION LIST REVIEWED WITH PT AND SPOUSE, QUESTIONS/CONCERNS ANSWERED. BOTH VERBALLY INDICATED UNDERSTANDING OF ALL INSTRUCTIONS RECEIVED. NEW MED [facility]CR[facility] FA[facility]ED TO [facility] PER PT PREFERENCE
--- NOTE | 2018-09-13 14:07 | NUR ---
PT DISCHARGED VIA W/C
== END 2018-09-13 13:55 | disposition home health service (06) | DRG 604 ==
LOC: ER 16:23 → MEDS 16:24 → ENPENDDIS 09-13 09:13 → MEDS 09-13 13:55
PROVIDERS: Emergency Medicine; Internal Medicine; ADMIT Hospitalist
PROC: 30233N1 Transfusion of Nonautologous Red Blood Cells into Peripheral Vein, Percutaneous Approach (ICD-10-PCS; principal; 2018-09-07)
DX: S30.0XXA Contusion of lower back and pelvis, initial encounter (principal); G92 Toxic encephalopathy; I69.354 Hemiplegia and hemiparesis following cerebral infarction affecting left non-dominant side; D62 Acute posthemorrhagic anemia; B37.0 Candidal stomatitis; J90 Pleural effusion, not elsewhere classified; D68.32 Hemorrhagic disorder due to extrinsic circulating anticoagulants; Z79.01 Long term (current) use of anticoagulants; G40.909 Epilepsy, unspecified, not intractable, without status epilepticus; Z87.891 Personal history of nicotine dependence; R44.1 Visual hallucinations; Z66 Do not resuscitate; S22.41XD Multiple fractures of ribs, right side, subsequent encounter for fracture with routine healing; T40.4X5A Adverse effect of other synthetic narcotics, initial encounter; Y92.9 Unspecified place or not applicable; K59.00 Constipation, unspecified; R19.7 Diarrhea, unspecified; G47.30 Sleep apnea, unspecified; Z51.5 Encounter for palliative care; Z95.2 Presence of prosthetic heart valve
CPT/HCPCS: 36415; 36430; 36600; 51702; 70450; 71046; 74176; 80048; 80053; 81001; 82140; 82272; 82607; 82728; 82746; 82803; 83540; 83550; 83605; 83735; 84484; 85014; 85018; 85025; 85610; 85730; 86850; 86900; 86901; 86923; 87040; 87086; 93005; 93010; 94762; 96360; 96361; 97110; 97116; 97162; 97166; 97530; 99285-25; A9270; G0378; J0696; J2405; J7030; P9016

== ENCOUNTER 2019-02-10 15:24 | Day surgery (SDC) | payer MEDICARE, OTHER ==
[~2019-02-10 15:24] MED LIST changes: +CLOT10 SS; +Vsl#3 Capsule1 EACH PO
[2019-02-10] MEDS ORDERED: Viagra100 MG PO (18:14)
[2019-02-10] MEDS ORDERED: TROSPIUM CHLORI20 MG (18:15)
== END 2019-02-10 16:32 | disposition home or self-care (01) ==
LOC: ATC 15:24
DX: I71.4 Abdominal aortic aneurysm, without rupture (principal); I25.10 Atherosclerotic heart disease of native coronary artery without angina pectoris; I10 Essential (primary) hypertension; E78.5 Hyperlipidemia, unspecified; I25.2 Old myocardial infarction; G40.909 Epilepsy, unspecified, not intractable, without status epilepticus; G47.30 Sleep apnea, unspecified; M19.90 Unspecified osteoarthritis, unspecified site; F32.9 Major depressive disorder, single episode, unspecified; K21.9 Gastro-esophageal reflux disease without esophagitis; Z86.73 Personal history of transient ischemic attack (TIA), and cerebral infarction without residual deficits; Z95.5 Presence of coronary angioplasty implant and graft; Z87.891 Personal history of nicotine dependence; Z79.01 Long term (current) use of anticoagulants; Z79.899 Other long term (current) drug therapy; Z88.8 Allergy status to other drugs, medicaments and biological substances; Z91.030 Bee allergy status; Z95.2 Presence of prosthetic heart valve; Z51.5 Encounter for palliative care
CPT/HCPCS: 36416; 85610; 96372; J1650

== ENCOUNTER → 2019-02-25 | Outpatient (CLI) | payer MEDICARE, OTHER ==
[~2019-02-25] MED LIST changes: +TROSPIUM CHLORI20 MG; +Viagra100 MG PO
[2019-02-25 15:53] LABS: Source, Urine Clean Catch
[2019-02-25 17:09] LABS: Blood, Urine Neg (Neg); Glucose Qualitative, Urine Neg (Neg); Ketones, Urine 1+ (Neg); Leukocyte Esterase, Urine 1+ (Neg); Nitrite, Urine Neg (Neg); Protein, Urine 2+ (Neg); Urobilinogen, Urine 3+ (Normal)
[2019-02-25 17:21] LABS: Bilirubin, Urine 1+ (Neg)
[2019-02-25 17:22] LABS: Appearance, Urine Clear (Clear); Color, Urine Amber (P-Yellow); Mucus Light (0-Heavy)
[2019-02-25 17:23] LABS: Bacteria Few /hpf; Red Blood Cells, Urine 0-2 /hpf (0-2); Squamous Epithelial Cells Not Seen /hpf (Few)
== END | disposition home or self-care (01) ==
LOC: LAB SHORT 15:30 → LAB 15:30
PROVIDERS: Internal Medicine
DX: G93.40 Encephalopathy, unspecified (principal)
CPT/HCPCS: 81001; 87077; 87086; 87186

== ENCOUNTER → 2019-03-01 | Outpatient (CLI) | payer MEDICARE, OTHER ==
[2019-03-01 13:26] LABS: BASOPHILS ABSOLUTE AUTO 0.03 K/mm3 (0.00-0.23); BASOPHILS PERCENT AUTO 0 % (0-2); EOSINOPHILS ABSOLUTE AUTO 0.12 K/mm3 (0.00-0.68); EOSINOPHILS PERCENT AUTO 2 % (0-6); Hematocrit 33.1 % (37.0-53.0); Hemoglobin 9.4 g/dL (13.5-17.5); IMMATURE GRAN ABSOLUTE AUTO 0.11 K/mm3 (0.00-0.10); IMMATURE GRAN PERCENT AUTO 2 % (0-1); LYMPHOCYTES ABSOLUTE AUTO 0.99 K/mm3 (0.84-5.20); LYMPHOCYTES PERCENT AUTO 13 % (21-46); MONOCYTES ABSOLUTE AUTO 0.45 K/mm3 (0.16-1.47); MONOCYTES PERCENT AUTO 6 % (4-13); Mean Corpuscular HGB 26.9 pg (26.0-34.0); Mean Corpuscular HGB Conc 28.4 g/dL (31.5-36.5); Mean Corpuscular Volume 95 fL (80-100); Mean Platelet Volume 10.3 fL (9.1-12.4); NEUTROPHILS ABSOLUTE AUTO 5.69 K/mm3 (1.96-9.15); NEUTROPHILS PERCENT AUTO 77 % (41-73); Platelet Count 437 K/mm3 (150-400); RDW Coefficient Variation 17.7 % (11.7-14.2); RDW Standard Deviation 60.8 fL (35.1-46.3); White Blood Cell Count 7.39 K/mm3 (4.00-11.30)
[2019-03-01 13:51] LABS: Alanine Aminotransfer (ALT/SGP 25 U/L (12-78); Albumin, Blood 3.1 g/dL (3.4-5.0); Albumin/Globulin Ratio 0.7 (0.8-1.8); Alk Phos 111 U/L (50-136); Anion Gap 4 mmol/L (6-16); Aspartate Aminotrans (AST/SGOT 21 U/L (12-37); Bilirubin, Total 0.6 mg/dL (0.1-1.0); Blood Urea Nitrogen 28 mg/dL (8-24); Bun/Creatinine Ratio 30.1 (12.0-20.0); CO2, Blood 28 mmol/L (21-32); Calcium, Blood 9.5 mg/dL (8.5-10.1); Chloride, Blood 109 mmol/L (98-108); Creatinine, Blood 0.93 mg/dL (0.60-1.20); Globulin, Blood 4.2 g/dL (2.2-4.0); Glomerular Filtration Rate >60 (60-); Glucose, Blood 91 mg/dL (70-99); Potassium, Blood 4.6 mmol/L (3.5-5.5); Sodium, Blood 141 mmol/L (136-145); Total Protein, Blood 7.3 g/dL (6.4-8.2)
== END | disposition home or self-care (01) ==
LOC: LAB 10:50 → LAB SHORT 10:50 → LAB FUT 02-26 14:55 → EDSTATUS 02-26 14:55
PROVIDERS: Internal Medicine
DX: G93.40 Encephalopathy, unspecified (principal)
CPT/HCPCS: 80053; 85025

== ENCOUNTER → 2019-03-09 | Outpatient (CLI) | payer MEDICARE, OTHER ==
[2019-03-09 12:59] LABS: Anion Gap 4 mmol/L (6-16); Blood Urea Nitrogen 24 mg/dL (8-24); Bun/Creatinine Ratio 25.9 (12.0-20.0); CO2, Blood 29 mmol/L (21-32); Calcium, Blood 9.5 mg/dL (8.5-10.1); Chloride, Blood 106 mmol/L (98-108); Creatinine, Blood 0.93 mg/dL (0.60-1.20); Glomerular Filtration Rate >60 (60-); Glucose, Blood 93 mg/dL (70-99); Potassium, Blood 4.7 mmol/L (3.5-5.5); Sodium, Blood 139 mmol/L (136-145)
== END | disposition home or self-care (01) ==
LOC: LAB 12:36 → LAB SHORT 12:36
PROVIDERS: Internal Medicine
DX: I69.354 Hemiplegia and hemiparesis following cerebral infarction affecting left non-dominant side (principal); I73.9 Peripheral vascular disease, unspecified; K21.9 Gastro-esophageal reflux disease without esophagitis; I25.10 Atherosclerotic heart disease of native coronary artery without angina pectoris; I10 Essential (primary) hypertension; B18.2 Chronic viral hepatitis C
CPT/HCPCS: 80048

== ENCOUNTER → 2019-06-03 | Outpatient (CLI) | payer MEDICARE, OTHER ==
[2019-06-03 13:06] LABS: Bilirubin, Urine Neg (Neg); Blood, Urine Neg (Neg); Glucose Qualitative, Urine Neg (Neg); Ketones, Urine Neg (Neg); Leukocyte Esterase, Urine Neg (Neg); Nitrite, Urine Neg (Neg); Protein, Urine Neg (Neg); Specific Gravity, Urine 1.015 (1.003-1.022); Urobilinogen, Urine NORM (Normal)
[2019-06-03 13:21] LABS: Appearance, Urine Hazy (Clear); Color, Urine Yellow (P-Yellow)
[2019-06-03 13:25] LABS: Red Blood Cells, Urine 0-2 /hpf (0-2)
[2019-06-03 13:26] LABS: Bacteria Many /hpf; Squamous Epithelial Cells Rare /hpf (Few)
== END | disposition home or self-care (01) ==
LOC: LAB 12:17 → LAB SHORT 12:17 → EDSTATUS 06-01 16:50 → LAB FUT 06-01 16:50
PROVIDERS: Internal Medicine
DX: R30.0 Dysuria (principal)
CPT/HCPCS: 81001; 87077; 87086; 87186

== ENCOUNTER → 2019-08-18 | Outpatient (CLI) | payer MEDICARE, OTHER ==
[2019-08-18 15:05] LABS: BASOPHILS ABSOLUTE AUTO 0.01 K/mm3 (0.00-0.23); BASOPHILS PERCENT AUTO 0 % (0-2); EOSINOPHILS ABSOLUTE AUTO 0.09 K/mm3 (0.00-0.68); EOSINOPHILS PERCENT AUTO 1 % (0-6); Hematocrit 23.4 % (37.0-53.0); Hemoglobin 7.2 g/dL (13.5-17.5); IMMATURE GRAN ABSOLUTE AUTO 0.04 K/mm3 (0.00-0.10); IMMATURE GRAN PERCENT AUTO 1 % (0-1); LYMPHOCYTES ABSOLUTE AUTO 0.84 K/mm3 (0.84-5.20); LYMPHOCYTES PERCENT AUTO 11 % (21-46); MONOCYTES ABSOLUTE AUTO 0.59 K/mm3 (0.16-1.47); MONOCYTES PERCENT AUTO 8 % (4-13); Mean Corpuscular HGB 27.4 pg (26.0-34.0); Mean Corpuscular HGB Conc 30.8 g/dL (31.5-36.5); Mean Corpuscular Volume 89 fL (80-100); Mean Platelet Volume 11.7 fL (9.1-12.4); NEUTROPHILS ABSOLUTE AUTO 5.97 K/mm3 (1.96-9.15); NEUTROPHILS PERCENT AUTO 79 % (41-73); Platelet Count 231 K/mm3 (150-400); RDW Coefficient Variation 17.7 % (11.7-14.2); RDW Standard Deviation 57.1 fL (35.1-46.3); Red Blood Cell Count 2.63 M/mm3 (4.30-5.90); White Blood Cell Count 7.54 K/mm3 (4.00-11.30)
[2019-08-18 15:30] LABS: Alanine Aminotransfer (ALT/SGP 32 U/L (12-78); Albumin, Blood 3.1 g/dL (3.4-5.0); Albumin/Globulin Ratio 0.8 (0.8-1.8); Alk Phos 55 U/L (50-136); Anion Gap 8 mmol/L (6-16); Aspartate Aminotrans (AST/SGOT 28 U/L (12-37); Bilirubin, Total 0.9 mg/dL (0.1-1.0); Blood Urea Nitrogen 30 mg/dL (8-24); Bun/Creatinine Ratio 30.2 (12.0-20.0); CO2, Blood 24 mmol/L (21-32); Chloride, Blood 110 mmol/L (98-108); Creatinine, Blood 0.99 mg/dL (0.60-1.20); Globulin, Blood 3.9 g/dL (2.2-4.0); Glomerular Filtration Rate >60 (60-); Glucose, Blood 85 mg/dL (70-99); Potassium, Blood 3.6 mmol/L (3.5-5.5); Sodium, Blood 142 mmol/L (136-145)
[2019-08-18 15:37] LABS: Percent Saturation 11.9 % (20.0-50.0)
== END | disposition home or self-care (01) ==
LOC: LAB SHORT 12:15 → LAB 12:15
PROVIDERS: Internal Medicine
DX: Z79.01 Long term (current) use of anticoagulants (principal); Z51.81 Encounter for therapeutic drug level monitoring; Z47.1 Aftercare following joint replacement surgery; I10 Essential (primary) hypertension; I25.10 Atherosclerotic heart disease of native coronary artery without angina pectoris; M15.0 Primary generalized (osteo)arthritis; I69.354 Hemiplegia and hemiparesis following cerebral infarction affecting left non-dominant side; G40.89 Other seizures; Z95.2 Presence of prosthetic heart valve; Z96.60 Presence of unspecified orthopedic joint implant
CPT/HCPCS: 80053; 82728; 83540; 83550; 85025

== ENCOUNTER → 2020-12-31 | Outpatient (CLI) | payer MEDICARE, OTHER ==
[2020-12-31 17:16] LABS: Source, Urine Clean Catch
[2020-12-31 19:08] LABS: Appearance, Urine Cloudy (Clear); Bilirubin, Urine Neg (Neg); Blood, Urine 5+ (Neg); Color, Urine Amber (P-Yellow); Glucose Qualitative, Urine Neg (Neg); Ketones, Urine Neg (Neg); Leukocyte Esterase, Urine 3+ (Neg); Nitrite, Urine Neg (Neg); Protein, Urine 4+ (Neg); Urobilinogen, Urine NORM (Normal)
[2020-12-31 19:40] LABS: Red Blood Cells, Urine 50-100 /hpf (0-2); White Blood Cells, Urine 50-100 /hpf (0-5)
[2020-12-31 19:41] LABS: Bacteria Mod /hpf; Squamous Epithelial Cells Rare /hpf (Few)
== END | disposition home or self-care (01) ==
LOC: LAB SHORT 15:17 → LAB 15:17
PROVIDERS: Internal Medicine
DX: R30.0 Dysuria (principal)
CPT/HCPCS: 81001; 87086

== ENCOUNTER → 2021-01-10 | Outpatient (CLI) | payer MEDICARE, OTHER ==
[2021-01-10 18:15] LABS: Appearance, Urine Cloudy (Clear); Bilirubin, Urine Neg (Neg); Blood, Urine 4+ (Neg); Color, Urine Yellow (P-Yellow); Glucose Qualitative, Urine Neg (Neg); Ketones, Urine Neg (Neg); Leukocyte Esterase, Urine 3+ (Neg); Nitrite, Urine Neg (Neg); Protein, Urine 3+ (Neg); Specific Gravity, Urine 1.015 (1.003-1.022); Urobilinogen, Urine NORM (Normal)
[2021-01-10 18:54] LABS: Bacteria Few /hpf; Red Blood Cells, Urine 0-2 /hpf (0-2); Squamous Epithelial Cells Rare /hpf (Few); White Blood Cells, Urine 50-100 /hpf (0-5)
== END | disposition home or self-care (01) ==
LOC: LAB SHORT 14:00
PROVIDERS: Internal Medicine
DX: R30.0 Dysuria (principal)
CPT/HCPCS: 81001; 87077; 87086; 87186

== ENCOUNTER 2021-03-22 03:43 | Day surgery (SDC) | payer MEDICARE, OTHER ==
[2021-03-22] MEDS ORDERED: ALLOPURINOL100 M1 PO (11:38)
[2021-03-22] MEDS ORDERED: ROSUVASTATIN CA10 MG PO (11:39)
[2021-03-22] MEDS ORDERED: CYMBALTA30 M2 PO (11:39)
[2021-03-22] MEDS ORDERED: DEPO-TESTO200 MG/1 M IM (11:40)
[2021-03-22] MEDS ORDERED: PREGABALIN75 MG PO (11:41)
== END 2021-03-22 11:57 | disposition home or self-care (01) ==
LOC: ATC 03:43
DX: N39.0 Urinary tract infection, site not specified (principal); E29.1 Testicular hypofunction; I25.119 Atherosclerotic heart disease of native coronary artery with unspecified angina pectoris; I25.2 Old myocardial infarction; I10 Essential (primary) hypertension; E78.5 Hyperlipidemia, unspecified; G40.909 Epilepsy, unspecified, not intractable, without status epilepticus; G47.30 Sleep apnea, unspecified; Z87.440 Personal history of urinary (tract) infections; I71.4 Abdominal aortic aneurysm, without rupture; K21.9 Gastro-esophageal reflux disease without esophagitis; N39.41 Urge incontinence; Z87.891 Personal history of nicotine dependence; Z91.030 Bee allergy status
CPT/HCPCS: J1580

== ENCOUNTER 2021-03-23 05:55 | Day surgery (SDC) | payer MEDICARE, OTHER ==
[~2021-03-23 05:55] MED LIST changes: +ALLOPURINOL100 M1 PO; +CYMBALTA30 M2 PO; +DEPO-TESTO200 MG/1 M IM; +PREGABALIN75 MG PO; +ROSUVASTATIN CA10 MG PO
== END 2021-03-23 11:16 | disposition home or self-care (01) ==
LOC: ATC 05:55
DX: N39.0 Urinary tract infection, site not specified (principal)
CPT/HCPCS: 96372; J1580

== ENCOUNTER 2021-03-24 03:02 | Day surgery (SDC) | payer MEDICARE, OTHER | END 2021-03-24 11:05 | disposition home or self-care (01) | LOC: ATC 03:02 | DX: N39.0 Urinary tract infection, site not specified (principal) | CPT/HCPCS: 96372; J1580 ==

== ENCOUNTER 2021-03-25 03:30 | Day surgery (SDC) | payer MEDICARE, OTHER | END 2021-03-25 10:55 | disposition home or self-care (01) | LOC: ATC 03:30 | DX: N39.0 Urinary tract infection, site not specified (principal) | CPT/HCPCS: 96372; J1580 ==

== ENCOUNTER 2021-03-26 03:54 | Day surgery (SDC) | payer MEDICARE, OTHER | END 2021-03-26 11:10 | disposition home or self-care (01) | LOC: ATC 03:54 | DX: N39.0 Urinary tract infection, site not specified (principal) | CPT/HCPCS: 96372; J1580 ==

== ENCOUNTER 2021-03-27 01:11 | Day surgery (SDC) | payer MEDICARE, OTHER | END 2021-03-27 11:15 | disposition home or self-care (01) | LOC: ATC 01:11 | DX: N39.0 Urinary tract infection, site not specified (principal) | CPT/HCPCS: 96372; J1580 ==

== ENCOUNTER 2021-03-28 02:16 | Day surgery (SDC) | payer MEDICARE, OTHER | END 2021-03-28 11:03 | disposition home or self-care (01) | LOC: ATC 02:16 | DX: N39.0 Urinary tract infection, site not specified (principal); I10 Essential (primary) hypertension; I25.10 Atherosclerotic heart disease of native coronary artery without angina pectoris; E78.5 Hyperlipidemia, unspecified; Z91.030 Bee allergy status; G40.909 Epilepsy, unspecified, not intractable, without status epilepticus | CPT/HCPCS: 96372; J1580 ==

== ENCOUNTER 2021-05-10 23:11 | Emergency (ER) | payer MEDICARE, OTHER ==
[~2021-05-10] VITALS: Ht 177.8 cm; Wt 102.1 kg
== END 2021-05-10 23:17 ==
LOC: ER 23:11
DX: I46.9 Cardiac arrest, cause unspecified (principal); G40.909 Epilepsy, unspecified, not intractable, without status epilepticus; Z86.73 Personal history of transient ischemic attack (TIA), and cerebral infarction without residual deficits; Z91.030 Bee allergy status; Z88.8 Allergy status to other drugs, medicaments and biological substances; Z79.01 Long term (current) use of anticoagulants; Z79.899 Other long term (current) drug therapy
CPT/HCPCS: 36415; 92950; 96374-59; 96375-59; 99285-25; J2310; J3475